=== PATIENT | female | born 1990 | race Two or more races ===

== ENCOUNTER → 2022-10-21 06:00 | Outpatient (CLI) | payer OTHER | END | disposition home or self-care (01) | LOC: LAB 06:00 → EDSTATUS 10-27 07:00 → CIR.AMB 10-27 07:00 | PROVIDERS: ATTEND Obstetrics & Gynecology Maternal & Fetal Medicine | DX: O34.32 Maternal care for cervical incompetence, second trimester (principal); Z20.822 Contact with and (suspected) exposure to COVID-19 ==